=== PATIENT | male | born 1985 | race Caucasian/White ===

== ENCOUNTER 2023-11-13 11:56 | Emergency (ER) | payer SELFPAY ==
[~2023-11-13] VITALS: Ht 180.3 cm; Wt 79.5 kg
[2023-11-13] MEDS ORDERED: dayquil (12:06)
[2023-11-13 13:07] LABS: RSV AMPLIFICATION NEGATIVE (NEGATIVE)
[2023-11-13 14:18] VITALS: BP 131/53; TEMP 100.9; O2SAT 98
== END 2023-11-13 14:33 | disposition home or self-care (01) ==
LOC: M ED 11:56
DX: J09.X9 Influenza due to identified novel influenza A virus with other manifestations (principal); F10.10 Alcohol abuse, uncomplicated; Z79.899 Other long term (current) drug therapy

== ENCOUNTER 2024-02-25 11:19 | Emergency (ER) | payer BC, SELFPAY ==
[~2024-02-25] VITALS: Ht 180.3 cm; Wt 77.0 kg
[~2024-02-25 11:19] MED LIST: dayquil
[2024-02-25] MEDS ORDERED: META58.68 PO (15:21)
[2024-02-25] MEDS ORDERED: SENN-186 PO (15:21)
[2024-02-25] MEDS ORDERED: COLA100C5 PO (15:21)
[2024-02-25 15:43] VITALS: BP 136/71; TEMP 99.7; O2SAT 98
== END 2024-02-25 15:40 | disposition home or self-care (01) ==
LOC: M ED 11:19 → M SDC 15:05 → CANBEDREQ 15:23 → M ED 15:40
DX: T18.5XXA Foreign body in anus and rectum, initial encounter (principal); Y92.9 Unspecified place or not applicable; Y93.9 Activity, unspecified